=== PATIENT | male | born 1975 | race Caucasian/White ===

== ENCOUNTER 2016-06-09 10:13 | Emergency (ER) | payer OTHER ==
[~2016-06-09] VITALS: Ht 180.3 cm; Wt 104.5 kg
[~2016-06-09 10:13] MED LIST: ALLO300T2 PO; BENZ-12 PO; COLC1TAB PO; HYDR-4003 PO; hydrocodone PO
[2016-06-09 10:40] VITALS: BP 166/111; PULSE 84; RESP 14; O2SAT 96
--- NOTE | 2016-06-09 11:15 | ED.REPORT ---
HPI-Headache Date of Service Jun 09, 2016 ED Provider: Rebecca Bryant History of Present Illness: headache usually takes motrin or tylenol and right eye is twitching and both eyes have mild blurry vision. no primary care. provider moved, but has been at [facility]. last vision exam 2 years ago. excedrin this am, no help 12/04 no nausea or vomiting Nursing Notes Stated Complaint: BLURRY VISON/HEADACHE Chief Complaint: Headache Nursing Notes Reviewed: Yes Allergies: Coded Allergies: No Known Allergies (Unverified Allergy, Unknown, 12/30/14) Scheduled Allopurinol (Allopurinol) 300 Mg Tablet 600 MG PO am Allopurinol (Allopurinol) 300 Mg Tablet 300 MG PO HS Probenecid/Colchicine 500-0.5 mg (Probenecid/Colchicine 500-0.5 mg) 1 Each Tablet 0.5 TABLET PO DAILY Scheduled PRN ([hydrocodone]) 7.5-325 PO PRN For Pain Benzonatate (Tessalon Perle) 100 Mg Capsule 200 MG PO TID PRN PRN For Cough Hydrocodone-Acetaminophen 5-325 mg (Hydrocodone-Acetaminophen 5-325 mg) 1 Each Tablet 1-2 TABLET PO BID PRN PRN PAIN OR SEVERE COUGH General Time Seen by MD: 11:02 Chief Complaint Headache Hx Obtained From: Patient Sudden in Onset?: No Location: : Temporal bilateral Radiation: : Does not radiate Risk-Headache )( SAH Risk Stratification Hypertension RF Statements: Risk factors reviewed Past Medical History Past Medical History Gout Denies: Asthma, Diabetes mellitus Past Surgical History foot Lasix ear Reports: Appendectomy Smoking History Current Every Day Smoker (1/2 pack a day for 10 years) Social History Alcohol Use: Denies alcohol use Drug Use: Denies drug use Other Social History: Occupation work at [employer] 06/09/2016 Ambulatory Status Independent Review of Systems Basic Review of Systems Respiratory: No shortness of breath, No cough, No wheeze Cardiovascular: No chest pain, No dyspnea on exertion, No orthopnea, No parox noct dyspnea, No palpitations : No dysuria, No frequency Hematologic: No bleeding, No bruising Endocrine: No cold intolerance, No heat intolerance, No weight gain, No weight loss Allergy / Immune: No allergy Physical Exam Initial Vital Signs Vital Signs (First) Date Time Temp Pulse Resp B/P Pulse Ox O2 Delivery O2 Flow Rate FiO2 06/09/16 10:40 36.8 84 14 166/111 96 Room Air Initial VS: Reviewed, Vital signs abnormal ENT: Mucous membranes moist, Conjunctiva normal, No scleral icterus Respiratory: Breath sounds normal, Clear to auscultation, No respiratory distress Cardiovascular: Regular rate & rhythm, Heart sounds normal, Intact distal pulses Abdomen / GI: Soft, Non-tender, No guarding, No rebound, No distention Back: No CVA tenderness Lymphatic: No lymphadenopathy Extremities: Vascular intact, Neuro intact, No swelling, No tenderness Skin: Warm, Dry, No cyanosis Psychiatric: Mood/affect normal, Behavior normal, Normal thought content General/Constitutional: Awake, Alert, No acute distress, Well appearing, Well developed, Well hydrated Head / Eyes: Atraumatic, Normocephalic, PERRL, EOMI, No nystagmus, No periorbital redness Neck: Atraumatic, Supple, No meningismus, Full range of motion, No JVD Neurologic: Oriented X3, Speech NL, No motor deficits, No sensory deficits, CN II - XII intact ENT: Atraumatic, Airway patent, Mucous membranes moist Respiratory / Chest: Atraumatic, Breath sounds NL, Breath sounds = bilat, No respiratory distress, No rales, No rhonchi, No wheezing Cardiovascular: Heart rate NL, Regular rhythm, Heart sounds NL, No gallop Abdomen: Atraumatic, Soft, Non-tender Interpretation & Diagnostics Lab Results Interpretation Result Diagram: 06/09/16 1130 06/09/16 1130 Test 06/09/16 11:30 White Blood Count 9.6th/mm3 (3.8-10.1) Red Blood Count 4.83mil/mm3 (4.40-5.80) Hemoglobin 14.5g/dL (13.8-17.2) Hematocrit 42.2% (41.0-50.0) Mean Corpuscular Volume 87.4fL (81-100) Mean Corpuscular Hemoglobin 30.0pg (27.0-35.0) Mean Corpuscular Hemoglobin Concent 34.4% (32.0-37.0) Red Cell Distribution Width 12.6% (12.3-15.4) Platelet Count 321bil/L (150-400) Neutrophils (%) (Auto) 56.3% (40-74) Lymphocytes (%) (Auto) 30.7% (14-46) Monocytes (%) (Auto) 10.3% (4-12) Eosinophils (%) (Auto) 2.0% (0-5) Basophils (%) (Auto) 0.5% (0-3) Sodium Level 142mEq/L (134-144) Potassium Level 4.3mEq/L (3.5-5.2) Chloride Level 103mEq/L (97-108) Carbon Dioxide Level 27mmol/L (18-29) Blood Urea Nitrogen 9mg/dL (6-20) Creatinine 1.03mg/dL (0.76-1.27) Estimat Glomerular Filtration Rate 86mL/min (>59) Glucose Level 93mg/dL (60-99) Calcium Level 9.1mg/dL (8.5-10.1) Total Bilirubin 0.3mg/dL (0.0-1.2) Aspartate Amino Transf (AST/SGOT) 25U/L (0-50) Alanine Aminotransferase (ALT/SGPT) 37U/L (0-44) Alkaline Phosphatase 81U/L (25-150) Total Protein 6.9g/dL (6.4-8.4) Albumin 4.3g/dL (3.4-5.0) Lab Results Interpretation: urine is negative, visual acuity is 20/20 and 20/40 eye presures are left at 18 right at 16 Re-Eval/Medical Decision Med Decision/Clinical Course 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 When asked if he takes frequent opiates he denies. Patient reports no pain relief. Discussed with patient as he lives in [facility] provider haldiol and benadryl for him to take on arrivel at home. Also discussed the importance of blood pressure control. Pateint states was not aware of it. Reminded him his blood pressure was discussed at last ER visist and was encourage to schedulea primary care appointment to address, Discharge & Departure Impression: Primary Impression: Hypertension Hypertension type: essential hypertension Additional Impression: Headache Headache type: unspecified Disposition: Home Patient Instructions: Chronic Hypertension (ED), Tension Headache (ED) Additional Instructions: Your labs are normal. Your visual acuity is 20/20 and 20/40. You will need an eye exam in the next week or two. Your eye pressure is normal in both eyes. Your blood pressure is elevated. YOU NEED to get this under control. Start metoprolol 50 mg in the am and pm. You may need additional medication to get in the acceptable range. Please call and schedule an appointment with primary care for next week. For your headache, please take haldiol 5 mg along with benadryl 50 mg. This will make you sleepy. Your headache should be reduced. Please work with primary care on medications for prevention of your headaches. REturn with any concerns. Referrals: OTHER,PHYSICIAN (PCP) (Family) EDSupervising Provider for APC: Arnold Aparicio MD, Sue ARNP Jun 09, 2016 11:15
[2016-06-09] MEDS ORDERED: Ketorolac 30 mg/mL 2 mL Inj IM ONE (11:25)
[2016-06-09] MEDS ORDERED: TETRACAINE 0.5% BOTH_EYES ONE (11:35)
[2016-06-09] MEDS ORDERED: Tetracaine 0.5% 4 mL Ophthalmic Solution BOTH_EYES ONE (11:40)
[2016-06-09 11:57] LABS: BASOPHILS % (AUTO) 0.5 % (0-3); MONOCYTES % (AUTO) 10.3 % (4-12); Mean Corpuscular Volume 87.4 fL (81-100); NEUTROPHILS % (AUTO) 56.3 % (40-74); Platelet Count 321 bil/L (150-400)
[2016-06-09 12:42] VITALS: BP 190/140; PULSE 69; RESP 14; O2SAT 99
[2016-06-09] MEDS ORDERED: MeTOProlol 1 mg/mL 5 mL Inj IVPUSH STA (12:48)
[2016-06-09 12:54] VITALS: BP 191/115
[2016-06-09 13:45] VITALS: BP 173/102; PULSE 69; RESP 14; O2SAT 99
[2016-06-09 14:53] VITALS: BP 173/102; PULSE 69; RESP 14; O2SAT 99
[2016-06-10] MEDS ORDERED: METO-301 PO (09:45)
== END 2016-06-09 14:25 | disposition home or self-care (01) ==
LOC: SED 10:13
DX: I10 Essential (primary) hypertension (principal); R51 Headache; F17.200 Nicotine dependence, unspecified, uncomplicated; Z90.49 Acquired absence of other specified parts of digestive tract
CPT/HCPCS: 36415; 80053; 81002; 85025; 96372; 96374; 99284; J1885; J3030

== ENCOUNTER 2016-06-10 07:45 | Emergency (ER) | payer OTHER ==
[~2016-06-10] VITALS: Ht 180.3 cm; Wt 104.5 kg
[2016-06-10 07:50] VITALS: BP 196/136; PULSE 82; RESP 15; O2SAT 96
--- NOTE | 2016-06-10 08:00 | ED.REPORT ---
HPI-Headache Date of Service Jun 10, 2016 ED Provider: Arnold Aparicio MD Pt is a 40 year old male with a history of gout who presents to the ED with concerns for a severe bitemporal headache that started 8 days ago. He reports that he was here yesterday with the same complaints, and when he was discharged , his symptoms were not alleviated. Pt denies any trauma to his head, fevers, nausea or vomiting. He reports that he was given medications yesterday, but was unable to fill one of them due to unavailability at the pharmacy. Pt denies any exposure to toxic materials, sick contacts, chest pain, shortness of breath or any other symptoms. He was given medications yesterday for elevated blood pressure, and presents hypertensive again today. He denies any history of hypertension, or frequent headaches in the past. Nursing Notes Stated Complaint: SEVERE HEADACHE Chief Complaint: Headache Nursing Notes Reviewed: Yes Allergies: Coded Allergies: No Known Allergies (Unverified Allergy, Unknown, 12/30/14) Scheduled Allopurinol (Allopurinol) 300 Mg Tablet 600 MG PO am Allopurinol (Allopurinol) 300 Mg Tablet 300 MG PO HS Probenecid/Colchicine 500-0.5 mg (Probenecid/Colchicine 500-0.5 mg) 1 Each Tablet 0.5 TABLET PO DAILY Scheduled PRN ([hydrocodone]) 7.5-325 PO PRN For Pain Benzonatate (Tessalon Perle) 100 Mg Capsule 200 MG PO TID PRN PRN For Cough Hydrocodone-Acetaminophen 5-325 mg (Hydrocodone-Acetaminophen 5-325 mg) 1 Each Tablet 1-2 TABLET PO BID PRN PRN PAIN OR SEVERE COUGH General Time Seen by MD: 07:59 Chief Complaint Headache Hx Obtained From: Patient Sudden in Onset?: Yes Onset Occurred: More than a week ago... Symptom Duration: Since onset Location: : Temporal bilateral Quality: Painful Severity: Current: Moderate Severity: Maximum: Moderate Similar Sx Previous: Yes Past Medical History Past Medical History Gout Past Surgical History Foot Lasix Ear Reports: Appendectomy Smoking History Current Every Day Smoker Social History Alcohol Use: Denies alcohol use Drug Use: Denies drug use Other Social History: Occupation work at [employer] 06/09/2016 Ambulatory Status Independent Review of Systems Constitutional: Denies: Chills, Fever, Malaise, Weakness - generalized GI: Denies: Abdominal pain, Constipation, Diarrhea, Nausea, Vomiting Musculoskeletal: Denies: Back pain, Extremity pain, Neck pain Skin: Denies Diaphoresis Neurologic: Reports: Headache, Denies: Abnormal movement, Change LOC, Dizziness, Syncope, Weakness Complete sys rev & neg: except as marked. Physical Exam Initial Vital Signs Vital Signs (First) Date Time Temp Pulse Resp B/P Pulse Ox O2 Delivery O2 Flow Rate FiO2 06/10/16 07:50 36.9 82 15 196/136 96 Room Air Initial VS: Reviewed ENT: Mucous membranes moist, Conjunctiva normal, No scleral icterus Respiratory: Breath sounds normal, Clear to auscultation, No respiratory distress Cardiovascular: Regular rate & rhythm, Heart sounds normal, Intact distal pulses Abdomen / GI: Soft, Non-tender, No guarding, No rebound, No distention Skin: Warm, Dry, No cyanosis Psychiatric: Mood/affect normal, Behavior normal, Normal thought content General/Constitutional: Awake, Alert, Well appearing, Well developed, Well nourished, Cooperative Head / Eyes: Atraumatic, Normocephalic, PERRL, EOMI No papular hemorrhage or exudate bilaterally Neck: Atraumatic, Supple, Full range of motion Neurologic: Oriented X3, Speech NL, No motor deficits, No sensory deficits, CN II - XII intact Interpretation & Diagnostics CT Head Interpretation IMPRESSION: 1. No acute intracranial abnormality. Dictated by: Fredis Russell M.D. on 06/10/2016 at 9:12 Interpretation / Wet Read by: Interpret - Radiologist Re-Eval/Medical Decision Source of Hx: Old records Re-Evaluation/Progress : Time of Eval: 09:26 Re-Evaluation/Progress Note: Pt is rechecked and informed of his labs and imaging results and the plan to discharge him at this time. Return precautions given. He understands and agrees, all questions are addressed. Counseled Regarding: Diagnosis, Lab results, Need for follow-up, When/why to return to ED Discharge & Departure Impression: Primary Impression: Headache Headache type: unspecified Headache chronicity pattern: unspecified pattern Intractability: not intractable Qualified Code: R51 - Headache Additional Impression: Hypertension Hypertension type: unspecified secondary hypertension Hypertension goal: unspecified goal Qualified Code: I15.9 - Secondary hypertension, unspecified Disposition: Home Discharge Condition All VS Reviewed: Yes Condition: Stable Patient Instructions: Migraine Headache (ED) Additional Instructions: No dangerous cause for your headache is identified. I believe that you do need treatment for your hypertension. I recommend metoprolol 50 mg twice daily as previously prescribed and I will also prescribe him metoclopramide (Reglan) to take as needed for headache or nausea. Follow up with a primary care doctor in the coming days for further assessment as needed. Referrals: [facility] Scribe Attestation Portions of this note were transcribed by Ruby Leon. I, Dr. Aparicio personally performed the history, physical exam and medical decision-making; I reviewed and confirmed the accuracy of the information in the transcribed note. Signed by: Ruby Hough, 06/10/2016 09:45 copies to: [facility] Arnold Aparicio MD Jun 10, 2016 08:00 TARA LEON Jun 10, 2016 08:12
[2016-06-10] MEDS ORDERED: 0.9% Sodium Chloride 1,000 ML IV ONE (08:07)
[2016-06-10] MEDS ORDERED: MetoCLOpramide 5 mg/mL 2 mL Inj IVPUSH ONE (08:10)
[2016-06-10] MEDS ORDERED: Dexamethasone 10 mg/mL Inj IVPUSH ONE (08:10)
[2016-06-10] MEDS ORDERED: Haloperidol 5 mg/mL Inj IVPUSH ONE (08:10)
--- NOTE | 2016-06-10 09:16 | DRSVH ---
PROCEDURE: CT BRAIN WITHOUT CONTRAST ([id number]) INDICATIONS: headache TECHNIQUE: Noncontrast 4.5 mm thick angled axial sections acquired from the foramen magnum to the vertex, with c oronal reformats. COMPARISON: [facility], CT, BRAIN W/O CONTRAST, 11/19/2014, 16:06. FINDINGS: Image quality: Excellent. CSF spaces: Basal cisterns are patent. No extra-axial fluid collections. Ventricles are unchanged in size. Brain: No intracranial hemorrhage, mass, or mass effect. Olson-white matter interface is preserved. Skull and face: Calvarium and visualized facial bones are intact, without suspicious lesions. Sinuses: Visualized sinuses and mastoids are clear. IMPRESSION: 1. No acute intracranial abnormality. Dictated by: Fredis Russell M.D. on 06/10/2016 at 9:12 Approved by: Fredis Russell M.D. on 06/10/2016 at 9:12
[2016-06-10 09:39] VITALS: BP 169/111; PULSE 79; RESP 16; O2SAT 98
[2016-06-10] MEDS ORDERED: METO-301 PO (09:45)
== END 2016-06-10 09:50 | disposition home or self-care (01) ==
LOC: SED 07:45
DX: R51 Headache (principal); I10 Essential (primary) hypertension; F17.210 Nicotine dependence, cigarettes, uncomplicated; Z90.49 Acquired absence of other specified parts of digestive tract
CPT/HCPCS: 70450; 96361; 96374; 96375; 99284; J1100; J1200; J1630; J2765; J7030